=== PATIENT | female | born 1980 | race Caucasian/White ===

== ENCOUNTER 2016-09-10 23:11 | Emergency (ER) | payer MEDICAID ==
[~2016-09-10] VITALS: Wt 84.5 kg
--- NOTE | 2016-09-11 02:22 | ERA ---
ER Documentation Chief Complaint Date/Time DATE: 09/11/16 TIME: 02:21 Chief Complaint Flank pain with dysurai x3 days HPI Patient presents with a chief complaint of 3 days of abdominal pain that is described as cramping. Patient has had these symptoms before and was diagnosed with constipation. Patient denies any other symptoms. Patient has not taken any medications at this time to relieve the symptoms. Last time the patient took a liquid that resolved her symptoms. ROS All systems reviewed and are negative except as per history of present illness. Medications Home Meds Active Scripts Polyethylene Glycol (POLYOX WSR-301) 1 Gm Powder, 1 GM MC BID for 5 Days Prov:KYLE RILEY PA-C 09/11/16 Allergies Allergies: Coded Allergies: No Known Drug Allergies (Verified Allergy, Unknown, 07/10/14) PMhx/Soc History of Surgery: No (C- SECTION X 2) Anesthesia Reaction: No Hx Neurological Disorder: No Hx Respiratory Disorders: No Hx Cardiac Disorders: No Hx Psychiatric Problems: No Hx Miscellaneous Medical Probl: No Hx Alcohol Use: No Hx Substance Use: No Hx Tobacco Use: No Smoking Status: Never smoker Physical Exam Vitals Vital Signs Date Time Temp Pulse Resp B/P Pulse Ox O2 Delivery O2 Flow Rate FiO2 09/11/16 04:37 98.4 68 20 142/77 97 09/10/16 23:31 97.5 92 20 162/85 97 Physical Exam Const: overweight 36 year old female in no acute distress. Head: Atraumatic Eyes: Normal Conjunctiva ENT: Normal External Ears, Nose and Mouth. Neck: Full range of motion..~ No meningismus. Resp: Clear to auscultation bilaterally Cardio: Regular rate and rhythm, no murmurs Abd: High pitched bowl sounds in lower abdomen. Soft, non tender, non distended. No rebound tenderness. Skin: No petechiae or rashes Back: No midline or flank tenderness Ext: No cyanosis, or edema Neur: Awake and alert Psych: Normal Mood and Affect Results 24 hrs Laboratory Tests Test 09/11/16 02:34 Bedside Urine pH (LAB) 6.0 Bedside Urine Protein (LAB) Negative Bedside Urine Glucose (UA) Negative Bedside Urine Ketones (LAB) Negative Bedside Urine Blood 2+ Bedside Urine Nitrite (LAB) Negative Bedside Urine Leukocyte Esterase (L Negative Procedures/MDM Patient is being worked up for constipation. Patient will receive an abdominal x-ray and a urine test prior to abdominal x-ray. X-ray is consistent with constipation. Patient will be treated with miralax and discharged with return precautions. At this time I do not suspect appendicitis, ectopic , ovarian cyst, PID, UTI, intestinal ischemia, peritonitis, mechanical obstruction, perforated viscus, acute pancreatitis, cholelithiasis, cholangitis , or AAA. On repeat exam, the abdominal exam remained the same. The patient is well appearing and tolerates PO. I have spoken with the patient regarding their condition and future management. They have verbally responded that they understand their status and treatment plan. The patient's vitals are stable and their current condition is appropriate for discharge. The patient will be given discharge instructions with return precautions. Departure Diagnosis: Primary Impression: Constipation Qualified Code: K59.00 - Constipation, unspecified constipation type Additional Impression: Abdominal pain Qualified Code: R10.84 - Generalized abdominal pain Condition: Stable Additional Instructions: Follow up with your PCP within the next 1-3 days for a more thorough evaluation and a possible referral to a specialist. Return the the emergency department immediately if symptoms worsen or change. If you have any questions regarding medications, ask your pharmacist or us before you leave. If any adverse reactions occur while taking your medications, discontinue the treatment and return to the emergency department immediately. Take your medications as directed, and complete the entire course of treatment. KYLE RILEY PA-C September 11, 2016 02:22
[2016-09-11 02:32] LABS: URINE BLOOD (Dip) POC 2+ (NEGATIVE)
--- NOTE | 2016-09-11 04:08 | RADRPT ---
PROCEDURE: XR Abdomen. CLINICAL INDICATION: Abdominal pain. TECHNIQUE: 3 frontal views of the abdomen. COMPARISON: None. FINDINGS: There is moderate retained stool within the colon. There is no bowel obstruction or free air. Ther e is no organomegaly. There is no abnormal calcification. The osseous structures are unremarkable. IMPRESSION: Moderate retained stool within the colon. .Jameel Murrieta MD, MD Date Time Electronically viewed and signed by .Jameel Murrieta MD, on 09/11/2016 04:08 .T/
[2016-09-11] MEDS ORDERED: POLY1POW MC (04:26)
[2016-09-11 04:37] VITALS: BP 142/77; PULSE 68; RESP 20; TEMP 98.4
== END 2016-09-11 04:38 | disposition home or self-care (01) ==
LOC: FTE 23:11
DX: K59.00 Constipation, unspecified (principal); R10.84 Generalized abdominal pain
CPT/HCPCS: 74010; 81003; Z7502